=== PATIENT | female | born 1960 | race Caucasian/White ===

== ENCOUNTER 2021-10-23 08:19 | Observation (INO) ==
[~2021-10-23 08:19] MED LIST: Buffered Lidocaine 1% SYRIN 1 ml INTRADERM ONE; DiMENhydriNATE IV 50 mg/ml 1 ml VIAL IV PUSH PRN; Lactated Ringers 1000 ml BAG 1,000 ML IV SCH; Midazolam 2 mg/2 ml VIAL 1 mg/ml 2 ml VIAL (2 mg) ONE; Naloxone 0.4 mg VIAL 0.4 mg/ml 1 ml VIAL IV PRN; Ondansetron 4 mg VIAL 2 MG/ML 2 ml VIAL IV PRN; Propofol 10 MG/ML 20 ML BTL ONE; diPHENhydraMINE IV 50 MG/ML 1 ml VIAL (BENADRYL) IV PRN; fentaNYL 100 mcg/2 ml 50 MCG/ML VIAL IV PRN
[2021-10-23] MEDS ORDERED: Morphine 2 MG/ML SYRINGE IV PRN (08:47)
[2021-10-23] MEDS ORDERED: Lactulose 30 ml UDC PO PRN (08:47)
[2021-10-23] MEDS ORDERED: diPHENhydraMINE 25 mg TAB PO PRN (08:47)
[2021-10-23] MEDS ORDERED: Ondansetron ODT 4 mg TAB 4 MG TAB PO PRN (08:47)
[2021-10-23] MEDS ORDERED: Ondansetron 4 mg VIAL 2 MG/ML 2 ml VIAL IV PRN (08:47)
[2021-10-23] MEDS ORDERED: diPHENhydraMINE IV 50 MG/ML 1 ml VIAL (BENADRYL) IV PRN (08:47)
[2021-10-23] MEDS ORDERED: Magnesium Hydroxide LIQ 30 ML UDC PO PRN (08:47)
[2021-10-23] MEDS ORDERED: Tranexamic Acid 1 GM/100ML BAG 0 MG/0 ML BAG IV ONE (09:26)
[2021-10-23] MEDS ORDERED: ceFAZolin 2 GM PREMIX 2 GM/50 ML BAG ONE (09:51)
[2021-10-23] MEDS ORDERED: Lidocaine 2% PF 5 ML VIAL ONE (09:53)
[2021-10-23] MEDS ORDERED: Phenylephrine IV 10 MG/ML 1 ml VIAL ONE (09:53)
[2021-10-23] MEDS ORDERED: fentaNYL 100 mcg/2 ml 50 MCG/ML VIAL ONE (09:53)
[2021-10-23] MEDS ORDERED: Propofol 10 MG/ML 20 ML BTL ONE ×2 (09:53→12:55)
[2021-10-23] MEDS ORDERED: Midazolam 2 mg/2 ml VIAL 1 mg/ml 2 ml VIAL (2 mg) ONE (09:53)
[2021-10-23] MEDS ORDERED: Dexamethasone IV 4 MG/ML VIAL 1 ml VIAL ONE (11:53)
[2021-10-23] MEDS ORDERED: Ondansetron 4 mg VIAL 2 MG/ML 2 ml VIAL ONE (11:53)
[2021-10-23] MEDS ORDERED: EPHEDrine (Pressors) 50 MG/ML VIAL ONE (11:56)
[2021-10-23] MEDS: Lactated Ringers 1000 ml BAG 1,000 ML IV SCH (16:30)
[2021-10-23] MEDS: Vitamin THERAPEUTIC TAB PO SCH (17:03)
[2021-10-23] MEDS: Magnesium Hydroxide LIQ 30 ML UDC PO SCH ×2 (17:03→20:21)
[2021-10-23] MEDS: ceFAZolin VIAL 1 GM in NS 0.9% 50 ML 50 ML IVPB SCH (20:21)
[2021-10-24] MEDS: Lactated Ringers 1000 ml BAG 1,000 ML IV SCH (02:37)
[2021-10-24] MEDS: ceFAZolin VIAL 1 GM in NS 0.9% 50 ML 50 ML IVPB SCH ×2 (04:25→11:49)
[2021-10-24 06:31] LABS: Hematocrit 29 % (35-47); Hemoglobin 9.7 g/dL (12.0-16.0); Mean Platelet Volume 8.6 fL (7.4-10.4); Platelet Count 204 10^3/uL (150-450)
[2021-10-24 06:50] LABS: Calcium 8.7 mg/dL (8.6-10.3); Potassium 4.5 mmol/L (3.5-5.0); eGFR CKD-EPI 99.9 (>60)
[2021-10-24] MEDS: Magnesium Hydroxide LIQ 30 ML UDC PO SCH (08:34)
[2021-10-24] MEDS: Vitamin THERAPEUTIC TAB PO SCH (08:35)
[2021-10-24 15:22] VITALS: BP 103/63
== END 2021-10-24 16:45 | disposition home or self-care (01) ==
LOC: SSU 08:19 → OR 08:19
PROVIDERS: ADMIT Orthopaedic Surgery Adult Reconstructive Orthopaedic Surgery; ATTEND Orthopaedic Surgery Adult Reconstructive Orthopaedic Surgery

== ENCOUNTER 2022-07-17 07:30 | Inpatient (IN) ==
[~2022-07-17 07:30] MED LIST changes: -DiMENhydriNATE IV 50 mg/ml 1 ml VIAL IV PUSH PRN; -Midazolam 2 mg/2 ml VIAL 1 mg/ml 2 ml VIAL (2 mg) ONE; -Naloxone 0.4 mg VIAL 0.4 mg/ml 1 ml VIAL IV PRN; -Ondansetron 4 mg VIAL 2 MG/ML 2 ml VIAL IV PRN; -Propofol 10 MG/ML 20 ML BTL ONE; -diPHENhydraMINE IV 50 MG/ML 1 ml VIAL (BENADRYL) IV PRN; -fentaNYL 100 mcg/2 ml 50 MCG/ML VIAL IV PRN
[2022-07-17] MEDS ORDERED: Lidocaine 2% PF 5 ML VIAL ONE (09:54)
[2022-07-17] MEDS ORDERED: Acetaminophen IV 1 GM/100ML 1,000 MG/100 ML BAG IV ONE (09:54)
[2022-07-17] MEDS ORDERED: Phenylephrine IV 10 MG/ML 1 ml VIAL ONE (09:54)
[2022-07-17] MEDS ORDERED: Sevoflurane BOTTLE ONE (09:54)
[2022-07-17] MEDS ORDERED: Midazolam 2 mg/2 ml VIAL 1 mg/ml 2 ml VIAL (2 mg) ONE (09:55)
[2022-07-17] MEDS ORDERED: Ondansetron 4 mg VIAL 2 MG/ML 2 ml VIAL ONE (09:55)
[2022-07-17] MEDS ORDERED: Dexamethasone IV 4 MG/ML VIAL 1 ml VIAL ONE (09:55)
[2022-07-17] MEDS ORDERED: fentaNYL 100 mcg/2 ml 50 MCG/ML VIAL ONE (09:55)
[2022-07-17] MEDS ORDERED: Propofol 10 MG/ML 20 ML BTL ONE (09:55)
[2022-07-17] MEDS ORDERED: Rocuronium 50 mg VIAL 10 mg/ml 5 ml VIAL (50 mg) ONE (09:55)
[2022-07-17] MEDS ORDERED: Bupivacaine 0.5% SDV PF 30ML VIAL ONE (10:25)
[2022-07-17] MEDS ORDERED: Bupivacaine 0.25% SDV 30 ML ONE (10:25)
[2022-07-17] MEDS ORDERED: Lidocaine 2% PF 10 ML AMP (OR) ONE (10:25)
[2022-07-17] MEDS ORDERED: ceFAZolin 2 GM in NS PREMIX 2 GM/100 ML BAG IVPB ONE (10:33)
[2022-07-17] MEDS ORDERED: Midazolam 5 mg/5 ml VIAL 1 mg/ml 5 ml VIAL (5 mg) ONE (10:44)
[2022-07-17] MEDS ORDERED: Vancomycin 1,000 MG VIAL ONE (11:17)
[2022-07-17] MEDS ORDERED: Sterile Water for Inj 10 ML ONE (13:36)
[2022-07-17] MEDS ORDERED: Magnesium Hydroxide LIQ 30 ML UDC PO PRN (16:49)
[2022-07-17] MEDS ORDERED: Ondansetron ODT 4 mg TAB 4 MG TAB PO PRN (16:49)
[2022-07-17] MEDS ORDERED: Ondansetron 4 mg VIAL 2 MG/ML 2 ml VIAL IV PRN (16:49)
[2022-07-17] MEDS ORDERED: Morphine 2 MG/ML SYRINGE IV PRN (16:49)
[2022-07-17] MEDS ORDERED: Lactulose 30 ml UDC PO PRN (16:49)
[2022-07-17] MEDS ORDERED: fentaNYL 100 mcg/2 ml 50 MCG/ML VIAL IV PRN (16:58)
[2022-07-17] MEDS ORDERED: Prochlorperazine 5 mg/ml 2 ml VIAL (10 mg) IV PRN (16:58)
[2022-07-17] MEDS ORDERED: Naloxone 0.4 mg VIAL 0.4 mg/ml 1 ml VIAL IV PRN (16:58)
[2022-07-17] MEDS ORDERED: Lactated Ringers 1000 ml BAG 1,000 ML IV SCH (17:00)
[2022-07-17] MEDS ORDERED: Senna TAB 8.6 mg TAB PO PRN (18:20)
[2022-07-17] MEDS: ceFAZolin 1 GM ADVAN 1 GM in NS 0.9% 50 ML 50 ML IVPB SCH (21:19)
[2022-07-17] MEDS: Magnesium Hydroxide LIQ 30 ML UDC PO SCH (21:19)
[2022-07-18] MEDS: ceFAZolin 1 GM ADVAN 1 GM in NS 0.9% 50 ML 50 ML IVPB SCH ×2 (05:24→11:46)
[2022-07-18 06:35] LABS: Hematocrit 35 % (35-47); Hemoglobin 11.5 g/dL (12.0-16.0); Mean Platelet Volume 8.5 fL (7.4-10.4); Platelet Count 239 10^3/uL (150-450)
[2022-07-18 06:52] LABS: Calcium 8.9 mg/dL (8.6-10.3); Creatinine, Serum 0.73 mg/dL (0.51-0.95); Potassium 4.6 mmol/L (3.5-5.0); eGFR CKD-EPI 94.1 (>60)
[2022-07-18] MEDS: Magnesium Hydroxide LIQ 30 ML UDC PO SCH (08:37)
[2022-07-18] MEDS ORDERED: Vitamin THERAPEUTIC TAB PO SCH (09:00)
[2022-07-18 11:32] VITALS: BP 103/60
== END 2022-07-18 14:00 | disposition home or self-care (01) | DRG 483 ==
LOC: AA 09:14 → INTOOBSV 09:14 → SSU 18:08
PROVIDERS: ADMIT Orthopaedic Surgery; ATTEND Orthopaedic Surgery

== ENCOUNTER 2024-01-23 05:33 | Observation (INO) ==
[~2024-01-23 05:33] MED LIST changes: -Buffered Lidocaine 1% SYRIN 1 ml INTRADERM ONE; -Lactated Ringers 1000 ml BAG 1,000 ML IV SCH; +Metoclopramide 5 MG/ML VIAL (10 mg) IV PRN; +NS 0.45% 1000 ml BAG 1,000 ML IV SCH; +Naloxone 0.4 mg VIAL 0.4 mg/ml 1 ml VIAL IV PRN; +Ondansetron 4 mg VIAL 2 MG/ML 2 ml VIAL IV PRN; +fentaNYL 100 mcg/2 ml 50 MCG/ML VIAL IV PRN
[2024-01-23] MEDS ORDERED: Tranexamic Acid 1 GM/100ML BAG 2,000 MG/200 ML BAG IV ONE (05:47)
[2024-01-23] MEDS ORDERED: ceFAZolin 2 GM in NS PREMIX 2 GM/100 ML BAG IVPB ONE (05:47)
[2024-01-23] MEDS ORDERED: Scopolamine 1 mg/72hr PATCH ONE (06:00)
[2024-01-23] MEDS: Scopolamine 1 mg/72hr PATCH TRANSDERM ONE (06:02)
[2024-01-23 06:14] LABS: Rapid COVID-19 Molecular Undetected (Undetected)
[2024-01-23] MEDS ORDERED: ROPIVACAINE 5 MG/ML 30 ML BTL (0.5%) ONE (06:38)
[2024-01-23] MEDS ORDERED: Lidocaine 2% PF 5 ML VIAL ONE (07:20)
[2024-01-23] MEDS ORDERED: Phenylephrine IV 10 MG/ML 1 ml VIAL ONE (07:20)
[2024-01-23] MEDS ORDERED: Propofol 0 MG/0 ML BTL ONE (07:22)
[2024-01-23] MEDS ORDERED: Midazolam 2 mg/2 ml VIAL 1 mg/ml 2 ml VIAL (2 mg) ONE (07:22)
[2024-01-23] MEDS ORDERED: Magnesium Hydroxide LIQ 30 ML UDC PO PRN (07:58)
[2024-01-23] MEDS ORDERED: Ondansetron 4 mg VIAL 2 MG/ML 2 ml VIAL IV PRN (07:58)
[2024-01-23] MEDS ORDERED: Calcium Carb (TUMS) 500 mg CHEW TAB PO PRN (07:58)
[2024-01-23] MEDS ORDERED: Lactulose 30 ml UDC PO PRN (07:58)
[2024-01-23] MEDS ORDERED: Ondansetron ODT 4 mg TAB 4 MG TAB PO PRN (07:58)
[2024-01-23] MEDS ORDERED: Morphine 2 MG/ML SYRINGE IV PRN (07:58)
[2024-01-23] MEDS ORDERED: Ondansetron 4 mg VIAL 2 MG/ML 2 ml VIAL ONE (08:04)
[2024-01-23] MEDS ORDERED: Dexamethasone IV 4 MG/ML VIAL 1 ml VIAL ONE (08:04)
[2024-01-23] MEDS ORDERED: Propofol 10 MG/ML 20 ML BTL ONE (09:21)
[2024-01-23] MEDS: Lactated Ringers 1000 ml BAG 1,000 ML IV SCH ×2 (11:43→12:26)
[2024-01-23] MEDS: Buffered Lidocaine 1% SYRIN 1 ml INTRADERM ONE (12:25)
[2024-01-23] MEDS: Acetaminophen IV 1 GM/100ML 1,000 MG/100 ML BAG IV ONE (12:25)
[2024-01-23] MEDS: Vitamin THERAPEUTIC TAB PO SCH (12:26)
[2024-01-23] MEDS: Magnesium Hydroxide LIQ 30 ML UDC PO SCH (12:26)
[2024-01-23 14:40] VITALS: BP 125/75
[2024-01-23] MEDS: ceFAZolin 2 GM in NS PREMIX 2 GM/100 ML BAG IVPB SCH (16:21)
== END 2024-01-23 17:40 | disposition home or self-care (01) ==
LOC: SSU 05:33 → OR 05:33
PROVIDERS: ADMIT Orthopaedic Surgery Adult Reconstructive Orthopaedic Surgery; ATTEND Orthopaedic Surgery Adult Reconstructive Orthopaedic Surgery